=== PATIENT | male | born 1995 | race Asian ===

== ENCOUNTER 2025-05-30 19:09 | Emergency (ER) | payer OTHER ==
[~2025-05-30] VITALS: Ht 172.7 cm; Wt 74.8 kg
[2025-05-30 19:18] VITALS: BP 105/62
[2025-05-30] MEDS ORDERED: MORPHINE SULFATE 4 MG/1 ML DISP.SYRIN ONE (19:55)
[2025-05-30] MEDS: MORPHINE SULFATE 4 MG/1 ML DISP.SYRIN IV ONE (20:01)
[2025-05-30 20:13] LABS: PLATELET COUNT (AUTO) 260 K/uL (152-348); RED BLOOD CELL COUNT(AUTO) 4.54 MIL/uL (4.06-5.63); RED CELL DISTRIBUTION WIDTH 13.4 % (12.1-16.2); WHITE BLOOD COUNT (AUTO) 6.1 K/uL (3.6-10.2)
[2025-05-30 20:30] LABS: ASPARTATE AMINOTRANSFERASE 15 U/L (15-37); CREATININE 0.7 mg/dL (0.6-1.3); SODIUM SERUM 142 mmol/L (136-145); TOTAL PROTEIN, SERUM 6.8 g/dL (6.4-8.2); UREA NITROGEN, BLOOD 9 mg/dL (7-18)
[2025-05-30] MEDS ORDERED: IV NORMAL SALINE 250 ML IV ONE (20:40)
[2025-05-30] MEDS ORDERED: IOHEXOL 300MG/ML 100 ML INFUS..BTL ONE (20:40)
[2025-05-30] MEDS ORDERED: SWABABLE VALVE TRANSFER SET EA MC ONE (20:40)
[2025-05-30] MEDS ORDERED: LIDO1ADH71 TD (22:37)
[2025-05-30] MEDS ORDERED: DICL100G61 TP (22:37)
[2025-05-30 22:48] VITALS: BP 110/66; TEMP 98; O2SAT 98
== END 2025-05-30 22:49 | disposition home or self-care (01) ==
LOC: ER 19:09
DX: S20.212A Contusion of left front wall of thorax, initial encounter (principal); X58.XXXA Exposure to other specified factors, initial encounter; Y93.89 Activity, other specified; Y92.89 Other specified places as the place of occurrence of the external cause; Y99.9 Unspecified external cause status
CPT/HCPCS: 99285; 74177; 96374; 80053; 83690; 85025; 85610; 71101; Q9967; J2270; A4606; A4663